=== PATIENT | female | born 1980 | race Caucasian/White ===

== ENCOUNTER 2018-04-07 16:58 | Emergency (ER) | payer OTHER ==
--- NOTE | 2018-04-07 17:03 | PDOC ---
History of Present Illness - General Chief Complaint: Pain Stated Complaint: LEFT FLANK/GROIN PAIN Time Seen by Provider: 04/07/18 17:00 - History of Present Illness Initial Comments: 04/07/18 17:00 Ms. Fang is a 38 yo female w/ no significant pmh who presents for evaluation of 2 month history of LLQ / pelvic pain. She reports it has been constant over this time period however got worse in the last month. She has been taking motrin for the pain which she reports helps somewhat. She also endorses foul smelling urine for the past week. Patient denies any other symptoms. The patient denies chest pain, shortness of breath, headache and dizziness. Denies fever, chills, nausea, vomit, diarrhea and constipation. Denies dysuria, frequency, urgency and hematuria. Past History - Past Medical History Allergies/Adverse Reactions: Allergies Allergy/AdvReac Type Severity Reaction Status Date / Time dan flavor Allergy Severe Verified 11/10/15 07:49 apple Allergy Verified 11/10/15 07:49 lactose AdvReac Verified 11/11/15 07:29 Home Medications: Ambulatory Orders NK [No Known Home Medication] 04/07/18 Asthma: No Cancer: No Cardiac Disorders: No Diabetes: No HTN: No Kidney Stones: Yes Seizures: No Thyroid Disease: No - Immunization History Immunization Up to Date: Yes - Suicide/Smoking/Psychosocial Hx Smoking Status: No Smoking History: Never smoked Have you smoked in the past 12 months: No Number of Cigarettes Smoked Daily: 0 Hx Alcohol Use: No Drug/Substance Use Hx: No Substance Use Type: None Hx Substance Use Treatment: No Review of Systems - Review of Systems Comments:: 04/07/18 17:06 GENERAL/CONSTITUTIONAL: No fever or chills. No weakness. HEAD, EYES, EARS, NOSE AND THROAT: No change in vision. No ear pain or discharge. No sore throat. CARDIOVASCULAR: No chest pain or shortness of breath RESPIRATORY: No cough, wheezing, or hemoptysis. GASTROINTESTINAL: +LLQ / L pelvic pain. No nausea, vomiting, diarrhea or constipation. GENITOURINARY: +Foul smelling urine as described. No dysuria or frequency. MUSCULOSKELETAL: No joint or muscle swelling or pain. No neck or back pain. SKIN: No rash NEUROLOGIC: No headache, vertigo, loss of consciousness, or change in strength/ sensation. ENDOCRINE: No increased thirst. No abnormal weight change HEMATOLOGIC/LYMPHATIC: No anemia, easy bleeding, or history of blood clots. ALLERGIC/IMMUNOLOGIC: No hives or skin allergy. *Physical Exam - Physical Exam Comments: 04/07/18 17:06 GENERAL: Awake, alert, and fully oriented, in no acute distress HEAD: No signs of trauma, normocephalic, atraumatic EYES: PERRLA, EOMI, sclera anicteric, conjunctiva clear ENT: Auricles normal inspection, hearing grossly normal, nares patent, oropharynx clear without exudates. Moist mucosa NECK: Normal ROM, supple, no lymphadenopathy, JVD, or masses LUNGS: No distress, speaks full sentences, clear to auscultation bilaterally HEART: Regular rate and rhythm, normal S1 and S2, no murmurs, rubs or gallops, peripheral pulses normal and equal bilaterally. ABDOMEN: +LLQ TTP. Soft, normoactive bowel sounds. No guarding, no rebound. No masses EXTREMITIES: Normal inspection, Normal range of motion, no edema. No clubbing or cyanosis. NEUROLOGICAL: Cranial nerves II through XII grossly intact. Normal speech, normal gait, no focal sensorimotor deficits SKIN: Warm, Dry, normal turgor, no rashes or lesions noted. : +Left sided TTP, minimal Right sided discomfort only, no CMT, Os closed, no blood noted in vaginal vault. Physiologic discharge also noted. ED Treatment Course - LABORATORY CBC & Chemistry Diagram: 04/07/18 17:35 04/07/18 17:35 Medical Decision Making - Medical Decision Making 04/07/18 17:37 Ms. Fang is a 38 yo female w/ pmh as described who presents for evaluation of 2 month history of left sided abdominal pain concerning for colitis vs. ovarian pathology vs. kidney injury. Patient initial evaluation started with CBC/CMP to r/o infectious or nephrological etiology. TVUS ordered for evaluation of L ovary. 04/07/18 18:34 TVUS negative for acute process. CT abdomen /pelvis with IV/Oral contrast ordered for further evaluation. 04/07/18 18:44 Patient signed out to oncoming team for further evaluation. *DC/Admit/Observation/Transfer Diagnosis at time of Disposition: Abdominal pain Qualifiers: Abdominal location: unspecified location Qualified Code(s): R10.9 - Unspecified abdominal pain - Discharge Dispostion Condition at time of disposition: Good - Referrals Referrals: Pablo Cm [Primary Care Provider] - - Patient Instructions - Post Discharge Activity
[2018-04-07 17:09] VITALS: BP 108/67; PULSE 78; TEMP 98.1; BMI 25.5
[2018-04-07] MEDS ORDERED: SODIUM CHLORIDE 1,000 ML IV STA (17:32)
--- NOTE | 2018-04-07 17:37 | PDOC ---
Attending Attestation - Resident Resident Name: Jai Art - ED Attending Attestation I have performed the following: I have examined & evaluated the patient, The case was reviewed & discussed with the resident, I agree w/resident's findings & plan, Exceptions are as noted - HPI HPI: 04/07/18 17:35 38-year-old female no past medical history here today complaining of left lower quadrant and left flank pain. Patient states she has had symptoms for 2 months denies any associated nausea or vomiting no associated GI symptoms such as constipation or diarrhea. She has noticed a foul odor to her urine but denies dysuria or urinary frequency. She has had a kidney stone previously when states this pain is slightly different no known history of ovarian cysts no moderating symptoms pain was intermittent but became constant and more severe last 24 hours which is why she is here today emergency room - Physicial Exam PE: 04/07/18 17:36 Awake alert no acute distress lungs are clear bilaterally heart is regular without any murmurs rubs or gallops abdomen is soft there is left lower quadrant tenderness no rebound no guarding no palpable hernia on Valsalva. Pelvic exam is noted with scant vaginal discharge in the vaginal vault no CMT mild left adnexal tenderness. Extremities are warm and well-perfused skin is warm and dry no rash patient is alert and oriented 3 - Medical Decision Making 04/07/18 17:36 Differential diagnosis includes diverticulitis, UTI, pyelonephritis, ovarian cyst there is no palpable hernia on exam. Plan transvaginal ultrasound to evaluate the left ovary pending results possible CT abdomen and pelvis to evaluate for diverticulitis UA to rule out UTI P control and reassess 04/07/18 18:56 p[t labs unremarkable. us with small follicular cysts, trace free fluid. sarah obtain ct r/o diverticulitis. pt signed out to dr. gaston, awaiting ct a/p
[2018-04-07 17:38] LABS: HCG,QUALITATIVE URINE Negative; URINE APPEARANCE Clear; URINE BILIRUBIN Negative (NEGATIVE); URINE COLOR Yellow; URINE GLUCOSE (UA) Negative (NEGATIVE); URINE KETONE Negative (NEGATIVE); URINE LEUK ESTERASE Negative (NEGATIVE); URINE NITRITE Negative (NEGATIVE); URINE PROTEIN Negative (NEGATIVE)
[2018-04-07 17:55] LABS: RDW 11.9 % (11.6-15.6); WHITE BLOOD COUNT 7.9 K/mm3 (4.0-10.8)
[2018-04-07 18:04] LABS: BASO % 0.5 % (0-2.0); EOS % 1.6 % (0-4.5); HEMATOCRIT 34.8 % (32.4-45.2); LYMPH % 27.3 % (8-40); MCH 31.1 pg (25.7-33.7); MCHC 34.5 g/dl (32.0-36.0); MEAN CELL VOLUME 90.4 fl (80-96); MEAN PLT VOLUME 7.1 fl (7.5-11.1); NEUT % 67.6 % (42.8-82.8); PLATELET COUNT 287 K/MM3 (134-434); RBC 3.85 M/mm3 (3.60-5.2)
[2018-04-07 18:09] LABS: ALBUMIN 3.9 g/dl (3.5-5.0); ALK PHOS 79 U/L (32-92); ANION GAP 3 MMOL/L (8-16); BILIRUBIN,TOTAL 0.8 mg/dl (0.2-1.0); BLOOD UREA NITROGEN 11 mg/dl (7-18); CALCIUM 9.3 mg/dl (8.4-10.2); CHLORIDE 107 mmol/L (98-107); CO2 24 mmol/L (22-28); CREATININE 0.7 mg/dl (0.6-1.3); GLUCOSE,RANDOM 98 mg/dl (74-106); POTASSIUM 3.8 mmol/L (3.5-5.1); SGOT/AST 21 U/L (10-42); SGPT/ALT 17 U/L (10-40); SODIUM 134 mmol/L (136-145); TOT PROT 7.1 g/dl (6.4-8.3)
[2018-04-07] MEDS ORDERED: KETOROLAC TROMETHAMINE 15 MG/ML VIAL IVPUSH ONE (19:03)
--- NOTE | 2018-04-07 19:27 | PDOC ---
*Physical Exam - Vital Signs Last Vital Signs Temp Pulse Resp BP Pulse Ox 98.1 F 78 17 108/67 100 04/07/18 16:59 04/07/18 16:59 04/07/18 16:59 04/07/18 16:59 04/07/18 16:59 ED Treatment Course - LABORATORY CBC & Chemistry Diagram: 04/07/18 17:35 04/07/18 17:35 - ADDITIONAL ORDERS Additional order review: Laboratory Results 04/07/18 04/07/18 17:35 17:15 Sodium 134 L Potassium 3.8 Chloride 107 Carbon Dioxide 24 Anion Gap 3 L BUN 11 Creatinine 0.7 Creat Clearance w eGFR > 60 Random Glucose 98 Calcium 9.3 Total Bilirubin 0.8 AST 21 ALT 17 D Alkaline Phosphatase 79 Total Protein 7.1 Albumin 3.9 Urine Color Yellow Urine Appearance Clear Urine pH 6.0 Ur Specific [place] 1.015 Urine Protein Negative Urine Glucose (UA) Negative Urine Ketones Negative Urine Blood Negative Urine Nitrite Negative Urine Bilirubin Negative Urine Urobilinogen 1.0 Ur Leukocyte Esterase Negative Urine HCG, Qual Negative 04/07/18 17:35 RBC 3.85 MCV 90.4 MCHC 34.5 RDW 11.9 MPV 7.1 L Neutrophils % 67.6 Lymphocytes % 27.3 Monocytes % 3.0 L Eosinophils % 1.6 Basophils % 0.5 - Medications Given in the ED: ED Medications Discontinued Medications Generic Name Dose Route Start Last Admin Trade Name Freq PRN Reason Stop Dose Admin Sodium Chloride 1,000 mls @ 1,000 mls/hr 04/07/18 17:32 04/07/18 18:10 Normal Saline - IV 04/07/18 18:31 1,000 mls/hr ASDIR STA Administration Progress Note - Progress Note Progress Note: Care of this patient was transferred to al from Dr. Alcala at 1900 hrs. Patient is a 38-year-old female with left lower quadrant pain. Dr. Alcala did an ultrasound which showed a small amount of free fluid in the pelvis otherwise was normal. Patient is drinking in preparation for CAT scan abdomen and pelvis to rule out diverticulitis. Patient otherwise was medicated and is feeling better and receiving fluids. Patient otherwise has a normal white count and her chemistries are unremarkable except a sodium that is slightly low at 134. 21:10 Ultrasound was negative for any acute pathology specifically no evidence of ovarian pathology or torsion. CAT scan was negative for any acute pathology no evidence of diverticulitis. Of note there was approximately a 3 mm stone in her left kidney on her last CAT scan that was a while ago that stone is no longer visible. It is possible that her pain was due to passage of that stone. Patient said her pain has now resolved, Patient given copies of her CAT scans and discharged home *DC/Admit/Observation/Transfer Diagnosis at time of Disposition: Abdominal pain Qualifiers: Abdominal location: unspecified location Qualified Code(s): R10.9 - Unspecified abdominal pain - Discharge Dispostion Disposition: HOME Condition at time of disposition: Good Decision to Admit order: No - Referrals Referrals: Pablo Cm [Primary Care Provider] - - Patient Instructions Additional Instructions: If you have any more pain U can take Tylenol or Motrin. Return to the emergency department immediately with ANY new, persistent or worsening symptoms. Continue any medications as previously prescribed by your physician. You should follow up with your primary doctor as soon as possible regarding today's emergency department visit. . Please make sure your doctor reviews the results of your emergency evaluation. Thank you for coming to the Emergency Department today for your care. It was a pleasure to see you today. Please note that your evaluation is INCOMPLETE until you follow-up with your doctor. - Post Discharge Activity
[2018-04-07] MEDS ORDERED: KETOROLAC TROMETHAMINE 15 MG/ML VIAL ONE (19:32)
== END 2018-04-07 21:21 | disposition home or self-care (01) ==
LOC: FER 16:58
PROC: 3E0333Z Introduction of Anti-inflammatory into Peripheral Vein, Percutaneous Approach (ICD-10-PCS; principal; 2018-04-07)
PROC: 3E0337Z Introduction of Electrolytic and Water Balance Substance into Peripheral Vein, Percutaneous Approach (ICD-10-PCS; 2018-04-07)
DX: R10.32 Left lower quadrant pain (principal)
CPT/HCPCS: 36415; 74177-TC; 76830-TC; 80053; 81003; 84703; 85025; 87086; 87186; 96361; 96374; 99283-25; J7030